=== PATIENT | male | born 1960 | race Caucasian/White ===

== ENCOUNTER 2017-01-06 00:43 | Emergency (ER) | payer BC, OTHER ==
[~2017-01-06] VITALS: Ht 167.6 cm; Wt 67.3 kg
[~2017-01-06 00:43] MED LIST: IMDSR30 PO; LPT40 PO; LSN25 PO; NTRSLP4 SL
[2017-01-06 00:53] VITALS: TEMP 36.8; Ht 167.6 cm; Wt 67.3 kg
--- NOTE | 2017-01-06 01:04 | EMERGENCY ROOM VISIT NOTE ---
History Report prepared by Portiaibdennis: Alfa Cheek Under the Supervision of: Dr. Akhil Thomson M.D. First contact with patient: 00:59 Chief Complaint: DENTAL PAIN Stated Complaint: TOOTH PAIN Nursing Triage Summary: left lower tooth dental pain. started 2 days ago then got better. tonight flared up again. History of Present Illness The patient is a 56 year old male who presents to the Emergency Room with complaints of waxing & waning dental pain for the past two days. The patient has dental pain on the left lower side that worsened tonight. The pain is rated 8/10 in severity. He denies any fevers. The patient has a history of dental infections, but states that it has been a while. The patient is thrombocytopenic and receives Lovenox injections. He denies bleeding. He had a heart attack last year. Source of History: patient Onset: two days ago Position: teeth (left lower) Symptom Intensity: 8/10 Timing: waxes/wanes Associated Symptoms: No fevers Review of Systems See HPI for pertinent positives & negatives. A total of 10 systems reviewed and were otherwise negative. Past Medical & Surgical Medical Problems: (1) Acute myocardial infarction (2) Hyperlipidemia (3) Thrombocytopenia Family History Diabetes mellitus FH: heart disease FH: hypertension Social History Smoking Status: Never Smoker Drug Use: none Marital Status: Housing Status: lives with family Occupation Status: employed Current/Historical Medications Scheduled Atorvastatin (Atorvastatin Calcium), 80 MG PO QAM Isosorbide Mononitrate (Isosorbide Mononitrate ER), 30 MG PO DAILYBB Lisinopril (Lisinopril), 2.5 MG PO QAM Penicillin V Potassium (Veetids), 500 MG PO QID Scheduled PRN Nitroglycerin (Nitrostat), 0.4 MG SL UD PRN for Chest Pain Allergies Coded Allergies: No Known Allergies (Unverified , 11/23/15) Physical Exam Vital Signs Date Time Temp Pulse Resp B/P Pulse Ox O2 Delivery O2 Flow Rate FiO2 01/06/17 01:21 60 19 153/99 97 01/06/17 00:53 36.8 60 19 153/99 97 Room Air Physical Exam GENERAL: Patient is uncomfortable appearing in moderate distress. HEENT: No acute trauma, normocephalic atraumatic, mucous membranes moist, no nasal congestion, no scleral icterus. Fractured left lower canine with significant caries, surrounding erythema, tender to palpation, no significant fluctuance. Mild left lower facial swelling without erythema nor tenderness, no submandibular tenderness nor swelling. NECK: No stridor, no adenopathy, no meningismus, trachea is midline. LUNGS: No dyspnea. Clear to auscultation and equal bilaterally. No wheeze, no rhonchi. HEART: Regular rate and rhythm. No murmurs, rubs, gallops appreciated. ABDOMEN: Soft, nontender, bowel sounds positive, no masses appreciated, no peritonitis. BACK: No midline tenderness, no CVA tenderness EXTREMITIES: Normal motion all extremities, no cyanosis, no edema. NEUROLOGIC: Alert and oriented, no acute motor or sensory deficits, no focal weakness, cranial nerves grossly intact. SKIN: No rash, no jaundice, no diaphoresis. Medical Decision & Procedures Medications Administered Medications (Trade) Dose Ordered Sig/Frantz Route Start Time Stop Time Status Last Admin Dose Admin Penicillin V Potassium (Veetids Tab) 500 mg ONE ONCE PO 01/06/17 01:15 01/06/17 01:16 DC 01/06/17 01:15 500 MG Oxycodone HCl (Roxicodone Immediate Rel 5MG Home Pack) 1 homepack UD ONCE PO 01/06/17 01:15 01/06/17 01:16 DC 01/06/17 01:15 1 HOMEPACK Oxycodone HCl (Roxicodone Immediate Rel Tab) 10 mg NOW STAT PO 01/06/17 01:10 01/06/17 01:11 DC 01/06/17 01:15 10 MG ED Course 0100: The patient was evaluated in room C3. A complete history and physical exam was performed. 0110: Oxycodone IR 10 mg PO. 0115: Oxycodone IR 5 mg PO homepack, Veetids 500 mg PO. 0115: Discussed the discharge instructions with him. He understands and agrees with the plan. The patient is ready for discharge. Medical Decision 56 yr old male with infected left lower canine tooth which I suspect likely has periapical abscess but no fluctuance nor evidence of significance facial, submental nor oropharyngeal swelling. Clearly uncomfortable. Stress importance of dentistry/OMFS follow up. He is no septic and otherwise looks well. Given to go Oxy IR with instructions. Impression Primary Impression: Periapical abscess Additional Impressions: Dental caries Pain, dental Scribe Attestation The scribe's documentation has been prepared under my direction and personally reviewed by me in its entirety. I confirm that the note above accurately reflects all work, treatment, procedures, and medical decision making performed by me. Departure Information Dispostion Home / Self-Care Prescriptions Penicillin V Potassium (Veetids) 500 Mg Tab 500 MG PO QID, #40 TAB Prov: Akhil Thomson M.D. 01/06/17 Referrals Rafaela Toth M.D. (PCP) Forms HOME CARE DOCUMENTATION FORM, IMPORTANT VISIT INFORMATION Patient Instructions ED Abscess Dental, [facility] Additional Instructions You have received a narcotic pain medication. These medications may cause drowsiness and should not be used with other sedative medications. Do not drive , drink alcohol, perform dangerous activities, nor make important decisions after taking these medications. manager terminal use or inappropriate use may lead to addiction. It is very important you follow up with a Dentist or Oral Surgeon for evaluation of dental issues. Problem Qualifiers
[2017-01-06] MEDS ORDERED: OXYCODONE HCL IR 5 MG TAB (IMMEDIATE RELEASE) PO STA ×2 (01:06→01:10)
[2017-01-06] MEDS ORDERED: PENI-82 PO (01:07)
[2017-01-06] MEDS ORDERED: PENICILLIN V POTASSIUM 250 MG TAB PO ONE (01:15)
[2017-01-06] MEDS ORDERED: OXYCODONE IR HOME PACK PO ONE (01:15)
[2017-01-06 01:21] VITALS: BP 153/99; PULSE 60; O2SAT 97
== END 2017-01-06 01:22 | disposition home or self-care (01) ==
LOC: C.EDB 00:43 → C.EDC 01:22
DX: K04.7 Periapical abscess without sinus (principal); K02.9 Dental caries, unspecified; K08.89 Other specified disorders of teeth and supporting structures; E78.5 Hyperlipidemia, unspecified; I25.2 Old myocardial infarction; Z83.3 Family history of diabetes mellitus; Z82.49 Family history of ischemic heart disease and other diseases of the circulatory system